=== PATIENT | male | born 1980 | race Caucasian/White ===

== ENCOUNTER 2021-05-19 10:35 | Emergency (ER) | payer OTHER, SELFPAY ==
--- NOTE | ~2021-05-19 | XR_ITS ---
EXAMINATION: XR ankle LT min 3V, XR foot LT min 3V EXAM DATE: 05/19/2021 10:59 INDICATION: Rolled left ankle two days ago. Persistent pain. Initial encounter. TECHNIQUE: Left foot dorsoplantar, lateral and oblique projections obtained and reviewed. Left ankle frontal, lateral and oblique projections obtained and reviewed. Comparison is made to prior examinat ion from 2005. FINDINGS: Left metatarsal bones unremarkable. The left ankle mortise appears intact. There are no acute fractures or dislocations identified. There is no subcutaneous gas. There is soft tissue swel ling anterolaterally. There are no radiopaque foreign bodies. IMPRESSION: 1. Left foot, ankle exam without acute osseous findings. Reviewed, dictated and finalized at location B. IMPRESSION: 1. Left foot, ankle exam without acute osseous findings.
--- NOTE | 2021-05-19 10:37 | ED.LOWEXIN ---
HPI - Extremity Injury (Lower) General Chief Complaint: Extremity Injury, Lower Stated Complaint: lt ankle injury Time Seen by Provider: 05/19/21 10:37 Source: patient and RN notes reviewed History of Present Illness HPI Narrative: Patient is a 40-year-old male who presents the urgent care with complaints of left foot and ankle pain. Patient states that on Wednesday he stepped out of his camper and twisted his left foot/ankle. Patient states that he has been putting ice on it elevating and taking Advil for the pain. No other acute complaints or injuries. No acute distress noted. Patient aware of the plan of care. Some parts of this dictation were generated by voice recognition software and may contain typographical and/or grammatical inaccuracies. Related Data Home Medications Medication Instructions Recorded Confirmed No Home Medications 05/19/21 05/19/21 Allergies Allergy/AdvReac Type Severity Reaction Status Date / Time No Known Allergies Allergy Verified 05/19/21 10:37 Review of Systems Review of Systems: CONSTITUTIONAL: Denies fever, chills, or sweats. EYES: Denies visual changes, redness, or discharge. ENT: Denies rhinorrhea, congestion, sore throat, or otalgia. CARDIOVASCULAR: Denies chest pain, palpitations, or edema. RESPIRATORY: Denies cough or dyspnea. GASTROINTESTINAL: Denies abdominal pain, nausea, vomiting, or diarrhea. GENITOURINARY: Denies dysuria or hematuria. SKIN: Denies rash or itching. MUSCULOSKELETAL: Reports of left foot and ankle pain and swelling NEUROLOGIC: Denies headache, numbness, or weakness. All other systems reviewed are negative, except as documented in HPI. PMFSH Comments At the time of my signature, I reviewed and agree with the nursing past medical, surgical, social, and family history. There is no relevant family history pertinent to the patient complaint. Exam Narrative: GENERAL: This is a well-nourished, well-developed patient, in no apparent distress. HEAD: normocephalic, atraumatic. EYES: PERRL. Sclera clear/white. Vision is grossly intact. EARS: External ears normal NOSE: External nose normal with no obvious nasal discharge, nares without redness, no rhinorrhea. THROAT: Mucous membranes moist NECK: Neck supple CARDIOVASCULAR: Regular rate and rhythm without murmurs, gallops, or rubs. RESPIRATORY: Clear to auscultation. Breath sounds equal bilaterally. No wheezes, rales, or rhonchi. SKIN: warm, intact with no suspicious lesions or rash, good texture and turgor. NEURO: awake, alert, and oriented to person, place and time. There were no obvious focal neurologic abnormalities. EXTREMITIES: Mild to moderate edema noted to the left lateral foot and left lateral malleolus with mild tenderness. Very mild ecchymosis to left lateral foot. No obvious deformity or fracture. Positive strong left pedal pulse with capillary refill less than 2 seconds. Range of motion to left lower extremity within normal limits. Weightbearing exacerbates pain. Course Vital Signs Vital signs: Vital Signs Temperature 97.9 F 05/19/21 10:50 Pulse Rate 90 05/19/21 10:50 Respiratory Rate 16 05/19/21 10:50 Blood Pressure 126/91 H 05/19/21 10:50 Pulse Oximetry 100 05/19/21 10:50 Temperature 97.9 F 05/19/21 10:50 Pulse Rate 90 05/19/21 10:50 Respiratory Rate 16 05/19/21 10:50 Blood Pressure 126/91 H 05/19/21 10:50 Pulse Oximetry 100 05/19/21 10:50 Reviewed-patient is informed that they may have pre-hypertension or hypertension based on a blood pressure reading in the department. I recommend the patient call the primary care provider listed on their discharge instructions or a physician of their choice this week to arrange follow-up for further evaluation of possible pre-hypertension or hypertension. MDM - Extremity Injury (Lower) MDM Narrative Medical decision making narrative: Reviewed x-ray results with the patient. He is aware that x-ray of left foot and ankle for fracture o
[2021-05-19 10:50] VITALS: BP 126/91; PULSE 90; RESP 16; TEMP 36.6; O2SAT 100
== END 2021-05-19 11:19 | disposition home or self-care (01) ==
PROVIDERS: Emergency Provider Nurse Practitioner Family
DX: S93.402A Sprain of unspecified ligament of left ankle, initial encounter (principal); S96.912A Strain of unspecified muscle and tendon at ankle and foot level, left foot, initial encounter; X50.9XXA Other and unspecified overexertion or strenuous movements or postures, initial encounter
CPT/HCPCS: 73610; 73630; 99213; G0463

== ENCOUNTER 2021-08-02 10:56 | Emergency (ER) | payer OTHER, SELFPAY ==
[2021-08-02 11:10] VITALS: BP 145/101; PULSE 96; RESP 16; TEMP 36.6; O2SAT 98
--- NOTE | 2021-08-02 11:13 | ED.URI ---
HPI - URI/Sore Throat General Chief Complaint: Upper Respiratory Infection Stated Complaint: sinus congestion Time Seen by Provider: 08/02/21 11:15 Source: patient and RN notes reviewed Mode of arrival: ambulatory Limitations: no limitations History of Present Illness HPI Narrative: 41-year-old male presents with concern for 2-week history of sinus pressure, postnasal drainage, sinus pain, headache. Reports he had a Covid exposure before he was ill. He is concerned for Covid. He has been taking [id number] multisymptom cold medicine without relief. He denies cough, shortness of breath, fever, body aches, chills, sweats. MD elicited complaint: cough and sore throat Related Data Allergies Allergy/AdvReac Type Severity Reaction Status Date / Time No Known Allergies Allergy Verified 08/02/21 11:07 Review of Systems Review of Systems: CONSTITUTIONAL: Denies malaise, chills, sweats, or fever. EYES: Denies visual changes, redness, or discharge. ENT: Reports rhinorrhea, congestion, sinus pain. Denies otalgia and sore throat. CARDIOVASCULAR: Denies chest pain, palpitations, or edema. RESPIRATORY: Denies cough. Denies dyspnea. GASTROINTESTINAL: Denies abdominal pain, nausea, vomiting, diarrhea SKIN: Denies rash or itching. MUSCULOSKELETAL: Reports myalgia. NEUROLOGIC: Denies headache. All systems reviewed & are unremarkable except as noted in HPI and below PMFSH Comments At time of signature, agree with nursing past medical, surgical, social and family history. There is no relevant family history pertinent to the presenting complaint Exam Narrative: GENERAL: Well-appearing, well-nourished, and in no acute distress. HEAD: Normocephalic EYES: PERRLA, conjunctivae clear ENT: Nares clear. Mucous membranes moist. TM pearly dorado with dull light reflex bilaterally; no tragal tenderness. NECK: Supple. No lymphadenopathy CHEST: Clear to auscultation, breath sounds equal. No wheezing, rhonchi, rales, or stridor. No respiratory distress, speaks in full sentences. HEART: Regular rate and rhythm. No murmur heard. SKIN: Warm, dry, no rash. NEURO: Alert and oriented x3. PSYCH: Normal mood and affect Course Course Emergency Course: Patient is aware of diagnosis, understands and agrees to treatment plan. Anticipatory guidance given. Patient agrees to follow-up as directed and is aware of reasons to seek care at the emergency department. Portions of this record may have been created with voice recognition software Level of Care: Express Care Visit Vital Signs Vital signs: Vital Signs Temperature 97.9 F 08/02/21 11:10 Pulse Rate 96 08/02/21 11:10 Respiratory Rate 16 08/02/21 11:10 Blood Pressure 145/101 H 08/02/21 11:10 Pulse Oximetry 98 08/02/21 11:10 Temperature 97.9 F 08/02/21 11:10 Pulse Rate 96 08/02/21 11:10 Respiratory Rate 16 08/02/21 11:10 Blood Pressure 145/101 H 08/02/21 11:10 Pulse Oximetry 98 08/02/21 11:10 Reviewed. Pt has been instructed to follow up with his primary care provider within the next week regarding his elevated blood pressure today. MDM - URI/Sore Throat MDM Narrative Medical decision making narrative: Differential diagnosis considered: Fink virus, strep pharyngitis, allergic rhinitis, upper respiratory tract infection, sinusitis, rhinosinusitis, nasopharyngitis. viral pharyngitis, otitis media, otitis externa, pneumonia, bronchitis, viral cough syndrome, viral syndrome, and influenza. Exam findings show no acute concerns or changes; patient is non-toxic appearing and is in no distress. Patient is appropriate for outpatient treatment and follow-up. Lab Data Attestation: I reviewed the patient's lab results. Critical Care Time Critical Care Time Critical Care Time: No Discharge Plan Discharge Clinical Impression: Acute bacterial sinusitis Patient Disposition: Home, Self-Care Condition: Stable Instructions: Antibiotic Form, Sinusitis (ED) Additional Ins
== END 2021-08-02 11:35 | disposition home or self-care (01) ==
PROVIDERS: Emergency Provider Nurse Practitioner
DX: U07.1 COVID-19 (principal)
CPT/HCPCS: 87426; 99213; C9803; G0463

== ENCOUNTER 2021-11-27 10:14 | Emergency (ER) | payer OTHER, SELFPAY ==
[2021-11-27 10:20] VITALS: BP 136/84; PULSE 75; RESP 12; TEMP 36.3; O2SAT 100
--- NOTE | 2021-11-27 10:43 | ED.EAR ---
HPI - Ear Problem General Chief complaint: Ear Stated complaint: left ear pain and sinus pressure Time Seen by Provider: 11/27/21 10:43 Source: patient, RN notes reviewed and old records reviewed Mode of arrival: ambulatory Limitations: no limitations History of Present Illness HPI Narrative: 41-year-old male who presents to [facility] with complaints of left ear pain and some sinus congestion and drainage. Patient states he takes daily allergy medications, Tylenol allergy med OTC. Patient reports left ear is painful and feels like it is clogged with symptoms beginning on Wednesday. Patient denies any fevers, chills or sweats or body aches has had COVID vaccinations x2 did not have flu shot this year. Patient has some clear nasal drainage, denies any sinus pressure or any headache pain. MD Complaint: ear pain Related Data Allergies Allergy/AdvReac Type Severity Reaction Status Date / Time No Known Allergies Allergy Verified 11/27/21 10:20 Review of Systems Review of Systems: CONSTITUTIONAL: Denies fever, chills, or sweats. EYES: Denies visual changes, redness, or discharge. ENT: positive rhinorrhea, congestion,no sore throat, positive for left otalgia. CARDIOVASCULAR: Denies chest pain, palpitations, or edema. RESPIRATORY: Denies cough or dyspnea. GASTROINTESTINAL: Denies abdominal pain, nausea, vomiting, or diarrhea. GENITOURINARY: Denies dysuria or hematuria. SKIN: Denies rash or itching. MUSCULOSKELETAL: Denies back pain, joint pain, or myalgia. NEUROLOGIC: Denies headache, numbness, or weakness. PSYCHIATRIC: Denies anxiety or depression. All systems reviewed & are unremarkable except as noted in HPI and below [facility] Past Medical History Medical History (Updated 11/27/21 @ 13:46 by Lorie Mar NP) Seasonal allergies Surgical History Surgical History (Updated 11/27/21 @ 11:10 by Lorie Mar NP) No history of previous surgery Social History Social History (Updated 11/27/21 @ 11:10 by Lorie Mar NP) Smoking packs per day: 0.5 Smoking cigarettes per day: 10.0 Years smoked: 20 Smoking pack-years: 10.00 Smoking status: Current every day smoker Alcohol intake: current Alcohol use details: social Substance use type: does not use Living arrangements: with family Gender identity (if verbalized by the patient): Male Comments At time of signature, agree with nursing past medical, surgical, social and family history. There is no relevant family history pertinent to the presenting complaint Exam Narrative: GENERAL: Well-appearing, well-nourished, and in no acute distress. HEAD: Normocephalic, atraumatic. EYES: PERRLA and EOMI. ENT: Nares boggy with clear rhinorrhea no epistaxis. Mucous membranes moist. TMs noted to be full of old black wax, see procedure note, left TM noted to be red after wax removed and bulging, right TM normal with good light reflex, throat mild redness with no lesions or exudates no tonsillar swelling, postnasal drainage present NECK: Supple. No lymphadenopathy CHEST: Clear to auscultation. No respiratory distress. No tachypnea SaO2 100% on room air HEART: Regular rate and rhythm. No murmur heard. Normal peripheral pulses. ABDOMEN: Soft, nontender, nondistended, normal active bowel sounds. EXTREMITIES: Normal range of motion. No edema. SKIN: Warm, dry, no rash. NEURO: No focal deficits. Alert and oriented x3. Course Course Level of Care: Express Care Visit Vital Signs Vital signs: Vital Signs Temperature 36.3 C L 11/27/21 10:20 Pulse Rate 75 11/27/21 10:20 Respiratory Rate 12 11/27/21 10:20 Blood Pressure 136/84 11/27/21 10:20 Pulse Oximetry 100 11/27/21 10:20 Temperature 36.3 C L 11/27/21 10:20 Pulse Rate 75 11/27/21 10:20 Respiratory Rate 12 11/27/21 10:20 Blood Pressure 136/84 11/27/21 10:20 Pulse Oximetry 100 11/27/21 10:20 Procedures Ear Wax Removal Both Ears: Ear Wax Removal Date:
== END 2021-11-27 11:18 | disposition home or self-care (01) ==
PROVIDERS: Emergency Provider Registered Nurse
DX: H65.02 Acute serous otitis media, left ear (principal); H61.23 Impacted cerumen, bilateral; F17.210 Nicotine dependence, cigarettes, uncomplicated
CPT/HCPCS: 69210; 99213; G0463